=== PATIENT | female | born 1960 | race Caucasian/White ===

== ENCOUNTER 2019-04-16 02:54 | Emergency (ER) | payer OTHER ==
--- NOTE | 2019-04-16 03:26 | ERPHSYRPT ---
- History of Present Illness Time Seen by Provider: 04/16/19 03:23 Source: patient, family Exam Limitations: no limitations Patient Subjective Stated Complaint: pt states that burning and frequency of urination began at midnight, pt states that she is unable to urinate Triage Nursing Assessment: pt ambulated into the ER, pt is AxO x3, pt is hypertensive, to states no flank pain, to distention to abdomen, pt states pain is 4/10 when urinating, pt states that she just got over a yeast infection last week Physician History: 58 yr old female with urinary symptoms today and prior hx of recurring UTI in past. no vag discharge , no vomiting, no abdominal pain; Timing/Duration: today Activites at Onset: none Quality: other (dysuria only) Onset Location: urethral Pain Radiation: suprapubic Severity of Pain-Max: mild Severity of Pain-Current: mild Prior abdominal problems: none Sexual intercourse history: non-contributory Modifying Factors: Improves With: nothing Associated Symptoms: dysuria, urinary frequency Allergies/Adverse Reactions: exenatide [From Byetta] Allergy (Severe, Verified 04/16/19 03:14) liraglutide [From Victoza] Allergy (Severe, Verified 04/16/19 03:14) Home Medications: Metformin HCl 500 mg [Glucophage 500 MG] 500 mg PO DAILY 04/10/16 [History ] Glimepiride 4 mg [Amaryl 4 mg] 4 mg PO DAILY 04/16/19 [History] Latanoprost 1 drop OP HS 04/16/19 [History] Lisinopril/Hydrochlorothiazide [Lisinopril-Hctz 20-12.5 mg Tab] 1 tab PO DAILY 04/16/19 [History] Timolol Maleate 0.5% Eye [Timoptic 0.5% 5 ml Ophthalmic] 1 drop OP BID 12/26 [History] Hx Tetanus, Diphtheria Vaccination/Date Given: No (unknown) Hx Influenza Vaccination/Date Given: Yes Hx Pneumococcal Vaccination/Date Given: No - Review of Systems Constitutional: No Fever, No Chills Eyes: No Symptoms Ears, Nose, & Throat: No Symptoms Respiratory: No Cough, No Dyspnea Cardiac: No Chest Pain, No Edema, No Syncope Abdominal/Gastrointestinal: No Abdominal Pain, No Nausea, No Vomiting, No Diarrhea Genitourinary Symptoms: Dysuria, Frequency Musculoskeletal: No Symptoms, No Back Pain, No Neck Pain Skin: No Rash Neurological: No Dizziness, No Focal Weakness, No Sensory Changes Psychological: No Symptoms Endocrine: No Symptoms Hematologic/Lymphatic: No Symptoms Immunological/Allergic: No Symptoms All Other Systems: Reviewed and Negative - Past Medical History Pertinent Past Medical History: Yes Neurological History: No Pertinent History ENT History: Cataracts, Glaucoma, Macular Degeneration Cardiac History: Hypertension Respiratory History: Bronchitis Endocrine Medical History: Diabetes Type II Musculoskeletal History: Arthritis GI Medical History: No Pertinent History History: No Pertinent History Psycho-Social History: No Pertinent History Female Reproductive Disorders: No Pertinent History - Past Surgical History Past Surgical History: Yes Neuro Surgical History: No Pertinent History Cardiac: No Pertinent History Respiratory: No Pertinent History Gastrointestinal: Appendectomy Genitourinary: No Pertinent History Musculoskeletal: No Pertinent History Female Surgical History: No Pertinent History Other Surgical History: colonoscopy 27 yrs ago r/t family hx of colon cancer, sutures to right palm - Social History Smoking Status: Never smoker Exposure to second hand smoke: No Drug Use: none Patient Lives Alone: No - Female History Hx Now: No - Nursing Vital Signs Nursing Vital Signs: Initial Vital Signs Temperature 97.2 F 04/16/19 03:00 Pulse Rate 65 04/16/19 03:00 Respiratory Rate 13 04/16/19 03:00 Blood Pressure 152/70 04/16/19 03:00 O2 Sat by Pulse Oximetry 99 04/16/19 03:00 Pain Scale Pain Intensity 4 - Physical Exam General Appearance: no apparent distress, alert Eye Exam: PERRL/EOMI, eyes nml inspection Ears, Nose, Throat Exam: normal ENT inspection, TMs normal, pharynx normal, moist mucous membranes Neck Exam: normal inspection, non-tender, supple, full range of motion Respiratory Exam: normal breath sounds, lungs clear, No respiratory distress Cardiovascular Exam: regular rate/rhythm, normal heart sounds, normal peripheral pulses Gastrointestinal/Abdomen Exam: soft, No tenderness, No mass Back Exam: normal inspection, normal range of motion, No CVA tenderness, No vertebral tenderness Extremity Exam: normal inspection, normal range of motion, pelvis stable Neurologic Exam: alert, oriented x 3, cooperative, hvac estimator II-XII nml as tested, normal mood/affect, sensation nml, No motor deficits Skin Exam: normal color, warm, dry Lymphatic Exam: No adenopathy SpO2 Interpretation: normal SpO2: 99 O2 Delivery: Room Air - Course Nursing assessment & vital signs reviewed: Yes Ordered Tests: Active Orders 24 hr Category Date Time Status PO Fluid Challenge STAT Care 04/16/19 03:22 Active CULTURE,URINE Stat Lab 04/16/19 03:44 Received UA W/RFX UR CULTURE Stat Lab 04/16/19 03:44 Completed Lab/Rad Data: Laboratory Results 04/16/19 Range/Units 03:44 Urine Color ALESSANDRA (YELLOW) Urine Appearance CLOUDY (CLEAR) Urine pH 5.0 (5-6) Ur Specific [place] 1.031 (1.005-1.025) Urine Protein >=500 (Negative) Urine Ketones TRACE (NEGATIVE) Urine Blood LARGE (0-5) Tk/ul Urine Nitrite NEGATIVE (NEGATIVE) Urine Bilirubin NEGATIVE (NEGATIVE) Urine Urobilinogen NEGATIVE (0-1) mg/dL Ur Leukocyte Esterase LARGE (NEGATIVE) Urine WBC (Auto) >100 (0-5) /HPF Urine RBC (Auto) >101 (0-2) /HPF U Epithel Cells (Auto) RARE (FEW) /HPF Urine Bacteria (Auto) RARE (NEGATIVE) /HPF Urine Mucus (Auto) SLIGHT (NEGATIVE) /HPF Urine Culture Reflexed YES (NO) Urine Glucose NEGATIVE (NEGATIVE) mg/dL - Progress Progress: improved, re-examined Counseled pt/family regarding: lab results, diagnosis, need for follow-up - Departure Departure Disposition: Home Clinical Impression: UTI (urinary tract infection) Condition: Good Critical Care Time: No Referrals: ESHA MENDOZA [Primary Care Provider] - Instructions: Urinary Tract Infection, Adult (DC) Additional Instructions: followup with your DrScott to retest urine after antibiotics and return meantime if not improving, vomiting or other concerns. Prescriptions: Cefuroxime Axetil 500 mg [Ceftin 500 mg] 500 mg PO BID #20 tablet Miconazole Nitrate [Monistat 7] 1 ea VG DAILY #1 box
[2019-04-16 03:55] LABS: Appearance CLOUDY (CLEAR); Bacteria RARE /HPF (NEGATIVE); Bilirubin NEGATIVE (NEGATIVE); Blood LARGE Ery/ul (0-5); Glucose NEGATIVE (NEGATIVE); Ketones TRACE (NEGATIVE); Leukocyte Esterase LARGE (NEGATIVE); Mucus SLIGHT /HPF (NEGATIVE); Nitrite NEGATIVE (NEGATIVE); Protein,Urine Dip >=500 (Negative); Specific Gravity 1.031 (1.005-1.025); Urobilinogen NEGATIVE mg/dL (0-1); WBC >100 /HPF (0-5)
[2019-04-16 04:00] LABS: Epithelial Cells RARE /HPF (FEW); RBC >101 /HPF (0-2)
[2019-04-16 04:13] VITALS: O2SAT 99
[2019-04-16] MEDS ORDERED: CEFTIN 500 MG PO ONE (04:17)
[2019-04-16 04:49] VITALS: BP 150/72; PULSE 67
== END 2019-04-16 04:53 | disposition home or self-care (01) ==
LOC: ED 02:54
DX: N39.0 Urinary tract infection, site not specified (principal)
CPT/HCPCS: 81001; 87086; 99283; A9270-GY

== ENCOUNTER 2022-03-19 05:33 | Day surgery (SDC) | payer OTHER ==
[2022-03-19] MEDS ORDERED: DIPRIVAN 200 MG/20 ML IV ONE ×2 (06:25→08:49)
[2022-03-19] MEDS ORDERED: Xylocaine-Mpf 2% 5 Ml Vial ONE (06:25)
[2022-03-19] MEDS ORDERED: Lactated Ringers 1,000 ML IV SCH (06:30)
[2022-03-19] MEDS ORDERED: D50W 50ML Vial IV ONE (07:45)
[2022-03-19 08:55] VITALS: BP 132/68; PULSE 82; O2SAT 97
--- NOTE | 2022-03-19 10:35 | OP ---
SURGERY DATE/TIME: 03/19/2022 0800 PREOPERATIVE DIAGNOSIS: Screening colonoscopy. POSTOPERATIVE DIAGNOSIS: Sigmoid colon polyp. PROCEDURE: Colonoscopy. SURGEON: Alexandre Myrick M.D. ANESTHESIA: MAC by Subhash Delgado CRNA. ESTIMATED BLOOD LOSS: Minimal. SPECIMENS: Hot forceps polypectomy from the distal sigmoid colon. DESCRIPTION OF PROCEDURE: After informed written consent was obtained, the patient was taken to the endoscopy suite. She was placed in left lateral decubitus position and anesthesia was titrated to desired level of consciousness. Digital rectal exam showed normal sphincter tone and no internal lesions. The scope was inserted into the rectum and sequentially the entire colonic mucosa was traversed. The level of cecum was reached and verified with direct visualization of the ileocecal valve. Upon withdrawal careful mucosal inspection revealed no gross abnormalities. Prep was noted to be fair with some liquid stool present. Upon inspection in the distal sigmoid colon there is a small sessile polyp which was grasped with forceps, cauterized and removed in its entirety. There was no bleeding following removal. Retroflexion was performed prior to withdrawal showed no internal lesions. The scope was removed. The patient was transferred to the recovery room in good condition.
== END 2022-03-19 09:07 | disposition home or self-care (01) ==
LOC: SDC 05:33
PROVIDERS: ATTEND Family Medicine
DX: Z12.11 Encounter for screening for malignant neoplasm of colon (principal); K63.5 Polyp of colon; E11.9 Type 2 diabetes mellitus without complications
CPT/HCPCS: 82947; J2704